=== PATIENT | female | born 1980 | race Two or more races ===

== ENCOUNTER 2023-10-15 20:36 | Emergency (ER) | payer BC ==
[~2023-10-15] VITALS: Ht 170.2 cm; Wt 96.3 kg
[~2023-10-15 20:36] MED LIST: ALBUAER3 IN; AZIT-43 PO; BENZ100C97 PO; PRED20TA2 PO
[2023-10-15 21:09] VITALS: BP 132/78; PULSE 109; RESP 18; TEMP 98.4; O2SAT 97
[2023-10-15] MEDS: ACETAMINOPHEN 325 MG TAB PO ONE (23:18)
[2023-10-15] MEDS ORDERED: ACET500T58 PO (23:33)
[2023-10-15] MEDS ORDERED: CYCL-614 PO (23:33)
== END 2023-10-16 00:30 | disposition home or self-care (01) ==
LOC: ER 20:36
DX: S30.0XXA Contusion of lower back and pelvis, initial encounter (principal); S30.1XXA Contusion of abdominal wall, initial encounter; E11.9 Type 2 diabetes mellitus without complications; E78.5 Hyperlipidemia, unspecified; Z79.899 Other long term (current) drug therapy; Z79.1 Long term (current) use of non-steroidal anti-inflammatories (NSAID); Z79.52 Long term (current) use of systemic steroids; V69.9XXA Occupant (driver) (passenger) of heavy transport vehicle injured in unspecified traffic accident, initial encounter; Y93.89 Activity, other specified; Y92.410 Unspecified street and highway as the place of occurrence of the external cause; Y99.8 Other external cause status
CPT/HCPCS: 72131; 74176